=== PATIENT | female | born 1955 | race Caucasian/White ===

== ENCOUNTER 2021-04-22 20:52 | Emergency (ER) | payer MEDICAID, SELFPAY ==
[2021-04-22 20:53] VITALS: BP 116/68; PULSE 122; RESP 16; TEMP 36.1; O2SAT 98; BMI 36.6
--- NOTE | 2021-04-22 21:50 | CT_ITS ---
STUDY: CT ABDOMEN AND PELVIS WITH CONTRAST REASON FOR EXAM: Female, 65 years old. colostomy dehiscence RADIATION DOSAGE (If Supplied By Facility): CTDIvol = ( 16.35 ) mGy, DLP = ( 1262.07 ) mGycm TECHNIQUE: Transaxial images were obtained from the dome of the diaphragm to the symphysis pubis without oral contrast. IV 100mL Isovue-300 was administered. Sagittal and coronal images were reconstructed. Individualized dose optimization techniques were used for this CT. COMPARISON: None. FINDINGS: The visualized lung bases are unremarkable. The visualized portions of the heart are within normal limits. Normal liver. Contracted gallbladder. Small gallstone. Normal spleen. Normal pancreas. Normal bilateral adrenal glands. Normal right kidney. Normal left kidney. Normal visualized stomach. Numerous loops of small bowel demonstrating circumferential wall thickening and edema. No evidence of obstruction. Likely infectious or inflammatory pathology. 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 Left lower quadrant ostomy. There is a suspected air-fluid level/small abscess near the colectomy sutures in the lower pelvic region. Normal abdominal aorta. Normal inferior vena cava. Normal retroperitoneum. Normal urinary bladder. Subcutaneous emphysema in the anterior abdominal wall. Small amount of fluid. No evidence of large abscess. Normal abdominal wall. Normal osseous structures. CT/Abdomen/Pelvis W IV Cont ONLY IMPRESSION: Subcutaneous emphysema within the anterior abdominal wall musculature and soft tissues compatible with abdominal venous systems. No evidence of large abscess collection. There is a trace amount of fluid. Near the colectomy site in the rectosigmoid colon, there is a suspected small abscess measuring 2.1 x 2.3 cm. Otherwise, multiple loops of small bowel demonstrating wall thickening and edema suggesting inflammatory or infectious process. No evidence of bowel obstruction Electronically Signed: Yinka Roberts DO at 22:48 EST Tel , Service support ,
[2021-04-22 22:00] LABS: Absolute Lymphocyte Count 1.51 X10^3/uL (0.83-4.51); Absolute Neutrophil Count 9.8 X10^3/uL (2.0-7.7); Basophil# 0.02 X10^3/uL; Basophil% 0.2 % (0-1); Eosinophil# 0.03 X10^3/uL; Eosinophils% 0.2 % (0-5); Hematocrit 35.1 % (37-47); Hemoglobin 11.4 g/dL (12.0-15.0); Lymphocyte # 1.51 X10^3/ul (0.83-4.51); Lymphocyte % 12.1 % (19-41); Mean Corp Hgb Conc 32.5 g/dL (32-36); Mean Corpuscular Hgb 28.5 pg (27.0-32.0); Mean Corpuscular Volume 87.8 fL (81-99); Mean Platelet Vol. 9.6 fl (6.2-12.0); Monocyte# 0.97 X10^3/uL; Monocyte% 7.8 % (0-10); NRBC Flagged by Analyzer 0 % (0-5); Neutrophil # 9.82 X10^3/uL (2.7-7.7); Platelet Count 422 K/mm3 (150-450); RBC Distribution Width CV 12.1 % (11.6-14.6); RBC Distribution Width SD 38.7 fl (35.1-43.9); White Blood Count 12.4 K/mm3 (4.4-11.0)
--- NOTE | 2021-04-22 22:01 | ED.VIS.GI ---
HPI HPI - GI History of Present Illness Chief Complaint: Wound Detail of Chief Complaint: Drainage from recent colostomy incision Informant: patient and family Abdominal Pain/Flank Pain Onset: Today Timing: Continuous Current Severity: Mild Maximum Severity: Mild Worsened by: Nothing Relieved by: Nothing Nausea/Vomiting/Emesis GI Symptom: Negative for Nausea and Vomiting Diarrhea/Melena/Hematochezia GI Symptom: Negative for Diarrhea, Melena and Hematochezia Associated Symptoms Associated Symptoms: Negative for Dysuria, Frequency and Hematuria Narrative Narrative: 65-year-old female recently had a bowel obstruction and was admitted to [facility] in [place] because that is where she lives. Eventually had a partial bowel resection and colostomy bag. She had been doing well. Was discharged to home has been home now with her daughter for the last couple of days. Today she coughed, sneezed and vomited and developed pain around her incision site. Then developed foul-smelling drainage from the site. Prior similar symptoms: No Recent Illness/Hospitalization: Yes PFSH PFSH Allergy/AdvReac Type Severity Reaction Status Date / Time Sulfa (Sulfonamide Allergy Rash Verified 04/22/21 20:53 Antibiotics) Social History Smoking Status: Unknown if ever smoked ROS ROS ED ROS Narrative Vomiting today. Review of Systems ROS Unobtainable: Denies due to encephalopathy Constitutional Constitutional ED: Denies fever(s) or subjective ENT ENT ED: Denies ear pain or rhinorrhea Cardiovascular Cardiovascular: Denies chest pain or palpitations Respiratory/Chest Respiratory/Chest: Denies cough or dyspnea Gastrointestinal Gastrointestinal: Reports nausea and vomiting; Denies abdominal pain Genitourinary Genitourinary ED: Denies dysuria Musculoskeletal Musculoskeletal: Denies myalgias Integumentary Denies rash Neurologic Neurologic: Denies headache(s) Psychiatric Psychiatric: Denies depression Endocrine Endocrinology: Denies polyuria Hematologic/Lymphatic Hematologic/Lymphatic: Denies easy bruising Allergic/Immunologic Allergic/Immunologic ED: Denies urticaria EXAM Physical Exam Narrative Exam Narrative: 65-year-old female no acute distress. Vital signs are stable and afebrile. HEENT exam unremarkable. Neck nontender. Lungs clear to auscultation. Heart regular rhythm no murmur. Abdomen is soft nondistended. There is some bruising around the incision site from the bowel resection. The colostomy bag appears to be working with stool in the bag. From the incision site there is foul-smelling drainage that appears to be stool. There is no peritoneal signs. Abdomen soft. Otherwise moving all 4 extremities. Neurologically she is awake and alert. Const Vital Signs: 04/22/21 20:53 Temperature 97.0 F L Temperature Source Temporal Pulse Rate 122 H Respiratory Rate 16 Blood Pressure 116/68 Blood Pressure Mean 84 Pulse Ox 98 Oxygen Delivery Method Room Air Positive well nourished, well developed and obese; Negative for cachectic, contractures or unkempt General Appearance ED: well developed and NAD; Negative for unkempt, cachectic, contractures or pallor Nutritional Appearance: obese; Negative for cachectic HEENT Reports moist mucous membranes normocephalic and atraumatic Eyes PERRL and EOMs intact bilaterally General Eye ED: Negative for pale conjunctiva or scleral icterus Neck no lymphadenopathy, supple and no JVD General: Negative for tenderness Resp normal respiratory effort and clear to auscultation bilaterally Auscultation: Negative for rales, rhonchi or wheezes Cardio regular rate, regular rhythm, S1 normal heart sound, S2 normal heart sound and no murmurs GI non-distended and no masses; Negative for non-tender GI Narrative: Mild incisional tenderness. No peritoneal signs. Small bruising around the wound. Discharge around the surgical incision site concerning for stool. Inspection: Negative for abdominal distention Auscultation: normoactive bowel sounds; Negative for hypoactive bowel sounds Palpation: soft and tender; Negative for guarding, rigid or rebound tenderness present Back/Spine no CVA tenderness Extremity full ROM General Extremety ED: Negative for edema or tenderness General Extremity: Negative for edema Neuro moves all extremities Sensorium / Orientation: alert, oriented to person, oriented to place and oriented to time; Negative for orientation impaired, confused, lethargic or stuporous Motor Exam: strength 5/5 throughout Psych mental status grossly normal and thought process normal Appearance: Negative for unkempt Mood & Affect: Negative for depressed or tearful Skin no wounds General Skin Exam: Negative for jaundice or pallor Lesions: no lesions Rashes: no rashes MDM MDM MDM Narrative Medical decision making narrative: 65-year-old female status post recent colostomy with concern for an intra-abdominal dehiscence. The discharge is foul-smelling and appears to be stool. CAT scan and labs are pending. I have already [facility] transfer [facility]. I spoke to the colorectal surgeon loss prevention specialist they have excepted the patient in transfer to their emergency department for evaluation for a possible intra-abdominal dehiscence of her recent partial colectomy surgery with a colostomy. Lab Data Attestation: I reviewed the patient's lab results. Lab results narrative: CBC shows a white count 12.4. Hemoglobin 11.4. Platelets 422. Electrolytes show sodium 130. Gap and 9 normal BUN/creatinine. She is diabetic her glucose is elevated to 67. We have no old labs available for comparison. Labs: Laboratory Results - last 24 hr 04/22/21 04/22/21 21:17 21:17 WBC 12.4 H RBC 4.00 L Hgb 11.4 L Hct 35.1 L MCV 87.8 MCH 28.5 MCHC 32.5 RDW Std Deviation 38.7 RDW Coeff of Katerine 12.1 Plt Count 422 MPV 9.6 Immature Gran % (Auto) 0.700 Neut % (Auto) 79.0 H Lymph % (Auto) 12.1 L [place] % (Auto) 7.8 Eos % (Auto) 0.2 Baso % (Auto) 0.2 Absolute Neuts (auto) 9.8 H Absolute Lymphs (auto) 1.51 Nucleated RBC % 0 Sodium 130 L Potassium 4.0 Chloride 98 Carbon Dioxide 23.0 Anion Gap 9 BUN 10 Creatinine 0.64 Estim Creat Clear Calc 71.16 Est GFR (MDRD) Af Amer 119 Est GFR (MDRD) Non-Af 99 BUN/Creatinine Ratio 15.5 Glucose 267 H Calcium 8.7 Discharge Plan Triage Chief Complaint: Wound ED Provider: Jaswinder Harrell Dx/Rx/DC Orders Clinical Impression: Surgical wound dehiscence, Colostomy in place, History of diabetes mellitus, type II Primary Care Provider: [facility] ,Out of Referrals: [facility] ,Out of [Primary Care Provider] - Disposition Disposition: [facility]
[2021-04-22 22:06] LABS: Anion Gap 9 (5-15); BUN 10 mg/dL (7-18); BUN/Creat Ratio 15.5 RATIO (10-20); Calcium,Total 8.7 mg/dL (8.5-10.1); Chloride 98 mmol/L (98-107); Creatinine, Serum 0.64 mg/dL (0.55-1.02); EST Glomerular Filtration Rate 99 mL/min (>60); Est Glom Filt Rate - Afr Amer 119 mL/min (>60); Estimated Creatinine Clearance 71.16 ml/min; Glucose 267 mg/dL (74-106); Sodium Level 130 mmol/L (136-145)
[2021-04-22] MEDS: 0.9% Normal Saline 1,000 ML 125 ML IV (22:41)
[2021-04-22 23:00] VITALS: BP 129/60; PULSE 96; RESP 16; TEMP 37.1; O2SAT 97
== END 2021-04-23 00:05 | disposition short-term general hospital (02) ==
PROVIDERS: Emergency Provider Emergency Medicine; Visit Provider Emergency Medicine
DX: T81.31XA Disruption of external operation (surgical) wound, not elsewhere classified, initial encounter (principal); Z93.3 Colostomy status; E11.9 Type 2 diabetes mellitus without complications; Y83.8 Other surgical procedures as the cause of abnormal reaction of the patient, or of later complication, without mention of misadventure at the time of the procedure; Z90.49 Acquired absence of other specified parts of digestive tract; E66.9 Obesity, unspecified; Z87.19 Personal history of other diseases of the digestive system; Z68.36 Body mass index [BMI] 36.0-36.9, adult
CPT/HCPCS: 74177; 80048; 85025; 96374; 99285; J7030; Q9967; A4216